=== PATIENT | male | born 2000 | race Caucasian/White ===

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

== ENCOUNTER 2020-01-07 13:56 | Emergency (ER) | payer OTHER ==
--- NOTE | 2020-01-07 14:16 | ED ---
Throat Pain/Nasal Congestion - HPI Summary HPI Summary: 19-year-old male presents to the emergency department today complaining of 8 out of 10 sore throat. Patient's please see if tonsillitis. Patient states his symptoms began approximately 2 days ago with sore throat, runny nose, mild cough. Patient has no chest pain or fevers or history of travel or exposure to those with known COVID virus. Patient has no evidence of trismus and no difficulty breathing or swallowing. Patient is otherwise well and denies fever , chest pain, abdominal pain, pain with urination, nausea, vomiting, diarrhea, rash. - History of Current Complaint Chief Complaint: EDThroatPain Time Seen by Provider: 01/07/20 14:01 Hx Obtained From: Patient Onset/Duration: Gradual Onset Severity: Moderate Associated Signs And Symptoms: Positive: Dysphagia Cough: Nonproductive - Allergies/Home Medications Allergies/Adverse Reactions: Allergies Allergy/AdvReac Type Severity Reaction Status Date / Time amoxicillin Allergy Rash Verified 01/07/20 13:59 Penicillins Allergy Rash Verified 01/07/20 13:59 Home Medications: Home Medications Unobtainable 11/19/18 [History Confirmed 11/19/18] PMH/Surg Hx/FS Hx/Imm Hx Infectious Disease History: No Infectious Disease History: Denies: Traveled Outside the [place] in Last 30 Days - Social History Alcohol Use: None Substance Use Type: Reports: None Smoking Status (MU): Never Smoked Tobacco Review of Systems Constitutional: Negative Eyes: Negative Positive: Sore Throat Cardiovascular: Negative Positive: Cough Gastrointestinal: Negative Genitourinary: Negative Musculoskeletal: Negative Skin: Negative Neurological/Mental Status: Negative Psychological: Normal All Other Systems Reviewed And Are Negative: Yes Physical Exam - Summary Physical Exam Summary: Inspection of the posterior pharynx reveals bilateral tonsillar swelling and erythema. There is posterior pharyngeal erythema. No evidence of vesicles or peritonsillar abscess. Uvula is midline. There is no tonsillar exudate. There is lymphadenopathy noted on the anterior cervical chain and submandibular lymph nodes. No trismus. Triage Information Reviewed: Yes Vital Signs On Initial Exam: Initial Vitals Temp Pulse Resp BP Pulse Ox 99.2 F 80 15 128/91 99 01/07/20 13:59 01/07/20 13:59 01/07/20 13:59 01/07/20 13:59 01/07/20 13:59 Vital Signs Reviewed: Yes Appearance: Positive: Well-Appearing, No Pain Distress, Well-Nourished Skin: Positive: Warm, Skin Color Reflects Adequate Perfusion Eyes: Positive: EOMI, JAMEEL ENT: Positive: Hearing grossly normal, Pharyngeal erythema, Tonsillar swelling, Uvula midline. Negative: Tonsillar exudate, Trismus, Muffled voice, Hoarse voice Respiratory/Lung Sounds: Positive: Clear to Auscultation, Breath Sounds Present Cardiovascular: Positive: RRR, S1, S2 Musculoskeletal: Positive: Strength/ROM Intact Neurological: Positive: Sensory/Motor Intact, Alert, Oriented to Person Place, Time, Normal Gait, Facial Symmetry, Speech Normal Psychiatric: Positive: Normal, Affect/Mood Appropriate AVPU Assessment: Alert Procedures - Sedation Patient Received Moderate/Deep Sedation with Procedure: No Diagnostics - Vital Signs Vital Signs Temp Pulse Resp BP Pulse Ox 01/07/20 13:59 99.2 F 80 15 128/91 99 - Laboratory Lab Statement: Any lab studies that have been ordered have been reviewed, and results considered in the medical decision making process. EENT Course/Dx - Course Assessment/Plan: Patient was evaluated in the emergency department today due to her sore throat. Vitals noted and stable. Patient afebrile. Physical exam showed no evidence of trismus or peritonsillar abscess. No muffling of the voice is noted. There is posterior pharyngeal erythema with no exudate. Physical exam was consistent with viral pharyngitis. Streptococcal pharyngeal culture returned negative for streptococcal pharyngitis. Patient discharged with outpatient follow-up with diagnosis of viral pharyngitis. - Differential Diagnoses Differential Diagnoses: Pharyngitis, Tonsilitis - Diagnoses Provider Diagnoses: Pharyngitis Discharge ED - Sign-Out/Discharge Documenting (check all that apply): Patient Departure - Discharge Plan Condition: Stable Disposition: HOME Patient Education Materials: Pharyngitis (ED) Referrals: [facility] [Outside] - 5 Days No Primary Care Phys,NOPCP [Primary Care Provider] - Additional Instructions: You were seen in the emergency department today due to a sore throat. There is no evidence of strep throat at this time. Your sore throat is likely due to an upper respiratory virus and will resolve shortly. Please follow-up with [facility] if you continue to have a sore throat in 7 days. Please return to this emergency Department immediately if you develop any new or worsening symptoms. You may take ibuprofen 600 mg every 6 hours as needed for sore throat. - Billing Disposition and Condition Condition: STABLE Disposition: Home
[2020-01-07 14:43] LABS: Rapid Strep Molecular Negative (Negative)
[2020-01-07 15:19] VITALS: BP 126/88
== END 2020-01-07 15:17 | disposition home or self-care (01) ==
LOC: ED 13:56
DX: J02.9 Acute pharyngitis, unspecified (principal); Z88.0 Allergy status to penicillin
CPT/HCPCS: 87651; 99282

== ENCOUNTER 2022-03-12 22:54 | Inpatient (IN) ==
[2022-03-13] MEDS ORDERED: Ondansetron 4 mg VIAL 2 MG/ML 2 ml VIAL IV ONE (02:08)
[2022-03-13] MEDS ORDERED: Lactated Ringers 1000 ml BAG 1,000 ML IV ONE ×2 (02:22→05:19)
[2022-03-13 03:09] LABS: ABS Lymphocytes 0.6 10^3/ul (1.0-4.8); Eosinophil % 0.1 %; Hematocrit 48 % (42-52); Hemoglobin 16.1 g/dL (14.0-18.0); Lymphocyte % 2.8 %; Mean Corpuscular HGB Conc 34 g/dL (31-36); Mean Corpuscular Hemoglobin 28 pg (27-31); Mean Corpuscular Volume 84 fL (80-94); Mean Platelet Volume 9.5 fL (7.4-10.4); Nucleated Red Blood Cells % 0.1; Platelet Count 183 10^3/uL (150-450); Red Blood Count 5.71 10^6 /uL (4.18-5.48); Red Cell Distribution Width 14 % (10-15); White Blood Count 19.6 10^3/uL (3.5-10.8)
[2022-03-13 03:37] LABS: Urine Appearance Clear; Urine Bilirubin Negative (Negative); Urine Blood Negative (Negative); Urine Color Amber; Urine Glucose Negative (Negative); Urine Ketones 2+ (Negative); Urine Nitrite Negative (Negative); Urine Protein 1+(30 mg/dL) (Negative); Urine Specific Gravity 1.029 (1.002-1.030); Urine Urobilinogen Positive (Negative)
[2022-03-13 03:42] LABS: Urine Bacteria Absent (Absent); Urine Granular Casts Present (Absent); Urine Red Blood Cell Trace(0-2/hpf) (Absent); Urine White Blood Cell Trace(0-5/hpf) (Absent)
[2022-03-13 03:47] LABS: ALT 8 U/L (7-52); Albumin 4.8 g/dL (3.2-5.2); Albumin/Globulin Ratio 1.8 (1-3); Alkaline Phosphatase 68 U/L (35-149); Blood Urea Nitrogen 18 mg/dL (6-24); C Reactive Protein 254.28 mg/L (<8.01); CO2 Carbon Dioxide 23 mmol/L (22-32); Chloride 94 mmol/L (101-111); Globulin 2.6 g/dL (2-4); Glucose 81 mg/dL (70-100); Lipase 21 U/L (11.0-82.0); Sodium 134 mmol/L (135-145); Total Protein 7.4 g/dL (6.4-8.9); eGFR CKD-EPI 86.8 (>60)
[2022-03-13] MEDS ORDERED: Iohexol 300 (CONTRAST) 10 ML SDV IV ONE (03:51)
[2022-03-13 04:05] LABS: Anion Gap 17 mmol/L (2-11)
[2022-03-13 06:08] LABS: Potassium Redraw 4.2 mmol/L (3.5-5.0)
[2022-03-13] MEDS ORDERED: HYDROmorphone 0.5 MG/0.5 ML SYRINGE IV SLOW PU PRN ×2 (06:20→11:05)
[2022-03-13] MEDS ORDERED: Ondansetron 4 mg VIAL 2 MG/ML 2 ml VIAL IV PRN ×2 (06:20→09:59)
[2022-03-13] MEDS ORDERED: Lidocaine 2% PF 10 ML AMP ONE (06:53)
[2022-03-13] MEDS ORDERED: Rocuronium 50 mg VIAL 10 mg/ml 5 ml VIAL (50 mg) ONE ×2 (06:54→08:24)
[2022-03-13] MEDS ORDERED: Dexamethasone IV 4 MG/ML VIAL 1 ml VIAL ONE (06:54)
[2022-03-13] MEDS ORDERED: Propofol 10 MG/ML 20 ML BTL ONE (06:54)
[2022-03-13] MEDS ORDERED: D5W 1/2 NS KCl 20 meq 1000 ml 1,000 ML IV SCH (07:00)
[2022-03-13] MEDS ORDERED: Piperacillin/Tazobactam VIAL 3.375 GM in NS 0.9% 100 ml BAG 100 ML IVPB SCH (07:00)
[2022-03-13] MEDS ORDERED: Bupivacaine 0.25% w/EPI 10 ML SDV ONE (07:26)
[2022-03-13] MEDS ORDERED: metroNIDAZOLE IV 500 MG/100ML 100 ML IVPB SCH (07:30)
[2022-03-13] MEDS ORDERED: metroNIDAZOLE IV 500 MG/100ML 500 MG/100 ML BAG ONE (08:00)
[2022-03-13] MEDS ORDERED: Ciprofloxacin 400mg IVPREMIX 400 MG/200 ML BAG ONE (08:00)
[2022-03-13] MEDS ORDERED: HYDROmorphone 0.5 MG/0.5 ML SYRINGE ONE ×2 (08:07→09:08)
[2022-03-13] MEDS ORDERED: HYDROmorphone 1 MG/1 ML SYRINGE IV PRN (09:59)
[2022-03-13] MEDS ORDERED: Naloxone 0.4 mg VIAL 0.4 mg/ml 1 ml VIAL IV PRN (09:59)
[2022-03-13] MEDS ORDERED: HYDROmorphone 1 MG/1 ML SYRINGE IV SLOW PU PRN (11:05)
[2022-03-13] MEDS ORDERED: Furosemide 20 mg/2 ml IV VIAL IV ONE (11:54)
[2022-03-13] MEDS ORDERED: Furosemide 40 mg/4 ml IV VIAL IV ONE (12:29)
[2022-03-13 12:39] LABS: PCO2 Arterial 45 mmHg (35-45); PO2 Arterial 90 mmHg (80-100)
[2022-03-13] MEDS ORDERED: Zosyn per Pharmacy NOTE FOLLOW UP SCH (13:00)
[2022-03-13 13:01] LABS: Albumin 3.2 g/dL (3.2-5.2); Albumin/Globulin Ratio 1.8 (1-3); Globulin 1.8 g/dL (2-4); Potassium 4.4 mmol/L (3.5-5.0); Total Bilirubin 2.9 mg/dL (0.2-1.0); eGFR CKD-EPI 125.1 (>60)
[2022-03-13 13:05] LABS: ABS Lymphocytes 0.2 10^3/ul (1.0-4.8); ABS Monocytes 0.5 10^3/ul (0-0.8); ABS Neutrophils 12.3 10^3/ul (1.5-7.7); Hematocrit 44 % (42-52); Hemoglobin 14.6 g/dL (14.0-18.0); Lymphocyte % 1.4 %; Mean Corpuscular HGB Conc 33 g/dL (31-36); Mean Corpuscular Hemoglobin 28 pg (27-31); Mean Corpuscular Volume 84 fL (80-94); Mean Platelet Volume 9.6 fL (7.4-10.4); Platelet Count 175 10^3/uL (150-450); Red Blood Count 5.24 10^6 /uL (4.18-5.48); Red Cell Distribution Width 13 % (10-15)
[2022-03-13] MEDS: Acetaminophen IV 1 GM/100ML 100 ML IV SCH ×2 (13:34→18:22)
[2022-03-13] MEDS ORDERED: Piperacillin/Tazobac ADVAN 3.375 GM in NS 0.9% 100 ml BAG 100 ML IV ONE (14:00)
[2022-03-13] MEDS: ZOSYN 3.375 GM Q8H per EXTENDED INFUSION IV SCH (18:56)
[2022-03-14] MEDS: Acetaminophen IV 1 GM/100ML 100 ML IV SCH ×4 (00:35→18:39)
[2022-03-14] MEDS: ZOSYN 3.375 GM Q8H per EXTENDED INFUSION IV SCH ×3 (01:53→18:41)
[2022-03-14 07:05] LABS: ABS Lymphocytes 0.5 10^3/ul (1.0-4.8); ABS Monocytes 0.6 10^3/ul (0-0.8); ABS Neutrophils 9.1 10^3/ul (1.5-7.7); Eosinophil % 0.2 %; Hematocrit 50 % (42-52); Hemoglobin 16.5 g/dL (14.0-18.0); Lymphocyte % 4.9 %; Mean Corpuscular HGB Conc 33 g/dL (31-36); Mean Corpuscular Hemoglobin 28 pg (27-31); Mean Corpuscular Volume 86 fL (80-94); Mean Platelet Volume 9.6 fL (7.4-10.4); Platelet Count 126 10^3/uL (150-450); Red Blood Count 5.83 10^6 /uL (4.18-5.48); Red Cell Distribution Width 14 % (10-15); White Blood Count 10.3 10^3/uL (3.5-10.8)
[2022-03-14 07:52] LABS: CO2 Carbon Dioxide 23 mmol/L (22-32); Chloride 100 mmol/L (101-111); Sodium 134 mmol/L (135-145)
[2022-03-14 07:58] LABS: Blood Urea Nitrogen 16 mg/dL (6-24); Glucose 98 mg/dL (70-100); eGFR CKD-EPI 124.7 (>60)
[2022-03-14 08:02] LABS: Anion Gap 11 mmol/L (2-11)
[2022-03-14] MEDS ORDERED: Furosemide 20 mg/2 ml IV VIAL IV ONE ×2 (08:49→15:08)
[2022-03-14 09:59] LABS: Calcium 8.8 mg/dL (8.6-10.3)
[2022-03-14] MEDS ORDERED: Carboxymethylcellulose/Glyceri 10 ML OPHTH.GEL lubricant eye gel BOTH EYES PRN (21:47)
[2022-03-15] MEDS: Acetaminophen IV 1 GM/100ML 100 ML IV SCH ×5 (00:37→20:10)
[2022-03-15] MEDS: ZOSYN 3.375 GM Q8H per EXTENDED INFUSION IV SCH ×3 (02:45→18:07)
[2022-03-15 06:56] LABS: Hematocrit 40 % (42-52); Hemoglobin 13.9 g/dL (14.0-18.0); Mean Corpuscular HGB Conc 35 g/dL (31-36); Mean Corpuscular Hemoglobin 29 pg (27-31); Mean Corpuscular Volume 84 fL (80-94); Mean Platelet Volume 9.2 fL (7.4-10.4); Platelet Count 184 10^3/uL (150-450); Red Blood Count 4.77 10^6 /uL (4.18-5.48); Red Cell Distribution Width 14 % (10-15); White Blood Count 6.5 10^3/uL (3.5-10.8)
[2022-03-15 07:24] LABS: Calcium 8.7 mg/dL (8.6-10.3); Magnesium 1.8 mg/dL (1.9-2.7); Potassium 3.6 mmol/L (3.5-5.0); eGFR CKD-EPI 124.7 (>60)
[2022-03-15] MEDS ORDERED: Magnesium Sulfate IV 3 GM in NS 0.9% 100 ml BAG 100 ML IVPB ONE (07:43)
[2022-03-15] MEDS ORDERED: Magnesium Sulfate 2 GM IV (Premix) IVPB ONE (08:30)
[2022-03-15] MEDS ORDERED: Magnesium Sulfate 1 GM IV 1 GM/100 ML BAG IV ONE (09:30)
[2022-03-15] MEDS: Enoxaparin 30 MG/0.3 ML SYR SUBCUT SCH (10:03)
[2022-03-16] MEDS: Acetaminophen IV 1 GM/100ML 100 ML IV SCH ×4 (02:39→20:20)
[2022-03-16] MEDS: ZOSYN 3.375 GM Q8H per EXTENDED INFUSION IV SCH ×3 (03:06→18:10)
[2022-03-16] MEDS: Enoxaparin 30 MG/0.3 ML SYR SUBCUT SCH (10:29)
[2022-03-17] MEDS: Acetaminophen IV 1 GM/100ML 100 ML IV SCH (02:43)
[2022-03-17] MEDS: ZOSYN 3.375 GM Q8H per EXTENDED INFUSION IV SCH ×2 (03:21→10:29)
[2022-03-17 08:06] LABS: Hematocrit 37 % (42-52); Hemoglobin 12.5 g/dL (14.0-18.0); Mean Corpuscular HGB Conc 34 g/dL (31-36); Mean Corpuscular Hemoglobin 29 pg (27-31); Mean Corpuscular Volume 84 fL (80-94); Mean Platelet Volume 8.3 fL (7.4-10.4); Platelet Count 200 10^3/uL (150-450); Red Blood Count 4.35 10^6 /uL (4.18-5.48); Red Cell Distribution Width 13 % (10-15)
[2022-03-17] MEDS: Enoxaparin 30 MG/0.3 ML SYR SUBCUT SCH (10:29)
[2022-03-17 10:55] VITALS: BP 100/68
== END 2022-03-17 15:45 | disposition home or self-care (01) | DRG 329 ==
LOC: EDHOLD 22:54 → AA 22:54 → ED 22:54 → ICU 03-13 07:45 → SSU 03-15 15:41
PROVIDERS: ADMIT Surgery; ATTEND Surgery